=== PATIENT | female | born 1975 | race Caucasian/White ===

== ENCOUNTER 2017-10-28 11:20 | Emergency (ER) | payer MEDICAID, OTHER ==
[~2017-10-28] VITALS: Ht 160 cm; Wt 75.0 kg
[2017-10-28] MEDS ORDERED: LORAZEPAM 1MG TABLET PO ONE (18:45)
[2017-10-28 20:22] VITALS: BP 145/95
== END 2017-10-28 20:28 | disposition home or self-care (01) ==
LOC: ER 11:25
DX: F41.9 Anxiety disorder, unspecified (principal); F32.9 Major depressive disorder, single episode, unspecified
CPT/HCPCS: 99284